=== PATIENT | female | born 1930 | race Caucasian/White ===

== ENCOUNTER 2017-03-05 21:17 | Inpatient (IN) ==
[2017-03-05] MEDS ORDERED: 0.9 % SODIUM CHLORIDE 1,000 ML IV ONE (21:20)
--- NOTE | 2017-03-05 21:28 | Emergency Department Note ---
SOB HPI - General Chief Complaint: Shortness of Breath/Dyspnea Stated Complaint: Weakness, SOB Time Seen by Provider: 03/05/17 21:23 Source: patient Mode of arrival: EMS Limitations: no limitations - History of Present Illness This patient was diagnosed with pneumonia on Monday at Dr. Woody's office and placed on Levaquin. She does have a history of COPD and heart failure and tonight felt pretty short of breath. She has been getting duo nebs every 4-6 hours. After the treatment at home she did improve but came on into the emergency room anyway. Denies chest pain fever chills nausea vomiting and has been taking fluids well at home. MD Complaint: shortness of breath, cough Onset (ago): day(s) Context: recent illness Severity: moderate Consistency/Duration: intermittent Improves with: bronchodilators Worsens with: coughing Known history of: COPD, congestive heart failure Associated symptoms: Reports: denies other symptoms - Related Data Home Medications Medication Instructions Recorded Confirmed Aspirin [Adult Low Dose Aspirin EC] 81 mg PO DAILY 07/17/16 03/05/17 Cilostazol [Pletal] 100 mg PO BID 07/17/16 03/05/17 Cyanocobalamin [Vitamin B12] 1,000 mcg PO DAILY 07/17/16 07/17/16 Folic Acid 0.4 mg PO DAILY 07/17/16 03/05/17 Furosemide [Lasix] 40 mg PO BID 07/17/16 03/05/17 Hydrochlorothiazide [Oretic] 25 mg PO DAILY 07/17/16 07/17/16 Levothyroxine [Synthroid] 88 mcg PO QAMAC 07/17/16 07/17/16 Losartan Potassium [Cozaar] 25 mg PO DAILY 07/17/16 03/05/17 Lovastatin [Mevacor] 40 mg PO HS 07/17/16 03/05/17 Potassium Chloride [Kdur] 20 meq PO QAC 07/17/16 07/17/16 Pramipexole [Mirapex] 0.25 mg PO DAILY 07/17/16 03/05/17 Vitamin D3 400 unit PO DAILY 07/17/16 07/17/16 budesonide 1 mg/2 mL suspension 1 mg INHALATION BID ml 03/02/17 03/02/17 for nebulization carvedilol 3.125 mg tablet 3.125 mg PO QDAY tab 03/02/17 03/05/17 dextromethorphan HBr PO Q12H PRN 03/02/17 03/02/17 hydrocodone-homatropine 5 mg-1.5 5 ml PO QHS PRN ml 03/02/17 03/02/17 mg/5 mL syrup ipratropium bromide 0.06 % nasal 2 spray INTRANASAL .BID-TID ml 03/02/17 spray ipratropium-albuterol 0.5 mg-3 3 ml INHALATION BID ml 03/02/17 03/02/17 mg(2.5 mg base)/3 mL nebulization soln lactulose 20 gram/30 mL oral 10 g PO QDAY ml 03/02/17 03/02/17 solution magnesium hydroxide PO 03/02/17 03/02/17 sennosides 8.6 mg tablet 8.6 mg PO ONCE 03/02/17 03/02/17 albuterol 90 mcg/actuation aerosol 90 mcg INHALATION ONCE 03/03/17 03/03/17 inhaler nitroglycerin 0.4 mg sublingual 0.4 mg SUBLINGUAL Q5-15M PRN 03/03/17 03/03/17 tablet omeprazole 40 mg capsule,delayed 40 mg PO BID 03/03/17 03/05/17 release sodium chloride 5 % eye drops 1 drp OPHTHALMIC ONCE ml 03/03/17 03/03/17 Levofloxacin [Levaquin] 500 mg PO DAILY 03/05/17 03/05/17 Allergies Allergy/AdvReac Type Severity Reaction Status Date / Time No Known Drug Allergies Allergy Verified 12/11/16 22:54 Review of Systems Constitutional: Denies: fever Eyes: Denies: eye pain ENT ED: Denies: ear pain Cardiovascular: Denies: chest pain Respiratory: Reports: cough, dyspnea, wheezes Gastrointestinal: Denies: abdominal pain, nausea Genitourinary: Denies: urgency Musculoskeletal: Denies: back pain Integumentary: Denies: rash Past Medical History - Past Medical History [facility] Narrative: Medical History (Last Updated 03/03/17 @ 08:47 by Minal Gracia) Hypokalemia (Chronic) Shortness of breath on exertion (Chronic) Right shoulder pain (Chronic) Restless (Chronic) Rectal mass (Chronic) Mitral regurgitation (Chronic) 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) Hypothyroidism (Chronic) GERD without esophagitis (Chronic) Edema (Chronic) Elevated d-dimer (Chronic) Cough (Chronic) COPD (chronic obstructive pulmonary disease) (Chronic) Cardiac failure (Chronic) Benign essential hypertension (Chronic) Acute congestive heart failure (Chronic) Acute bronchitis (Chronic) Abdominal pain (Chronic) Chest pain (Chronic) Congestive heart failure (Chronic) Past Surgical History (Last Updated 03/03/17 @ 08:48 by Minal Gracia) History of surgery (Chronic) Family History Other No pertinent family history Medical history: Reports: CHF, coronary artery disease, hyperlipidemia, hypertension, valvular heart disease Surgical history ED: Reports: coronary bypass (CABG), pacemaker/AICD Physical Exam - General Limitations: no limitations General appearance: alert - Head Head exam: atraumatic, normocephalic - Eye Eye exam: Present: normal appearance - ENT ENT exam: normal exam - Neck Neck exam: Present: normal inspection - Chest Chest inspection: Present: normal inspection - Respiratory Respiratory exam: Present: wheezes - Cardiovascular Cardiovascular exam: Present: regular rate, normal rhythm, normal heart sounds - Abdominal Exam Abdominal exam: Present: soft. Absent: distention, tenderness - Neurological Exam Neurological exam: Present: alert - Psychiatric Psychiatric exam: Present: normal affect, normal mood - Skin Skin exam: Present: warm, dry, intact Course Vital Signs Temperature 96.9 F L 03/05/17 21:18 Pulse Rate 95 H 03/05/17 21:18 Respiratory Rate 20 03/05/17 21:18 Blood Pressure 98/56 03/05/17 21:18 Pulse Oximetry (%) 93 03/05/17 21:18 Temperature 97.2 F 03/06/17 04:14 Pulse Rate 90 03/06/17 04:14 Respiratory Rate 20 03/06/17 04:14 Blood Pressure 102/60 03/06/17 04:14 Pulse Oximetry (%) 93 03/06/17 04:14 Shortness of Breath/Dyspnea - [facility] Narrative Medical decision making narrative: This patient requires several DuoNeb treatments and was too weak to walk and family hope that she would be admitted. I did discuss case with Dr. Treviño and the patient will be admitted to the hospital. - Lab Data Lab results reviewed: Yes I reviewed the patient's lab results. Result diagrams: 03/06/17 04:55 03/06/17 04:55 Lab Results 03/05/17 03/05/17 03/05/17 Range/Units 21:36 21:36 21:36 WBC 4.8 (4.5-11.0) K/mcL RBC 3.02 L (4.00-5.20) M/mcL Hgb 9.5 L (12.0-15.0) g/dL Hct 28.5 L (36.0-48.0) % MCV 94.5 (80.0-100.0) fL MCH 31.5 (26.0-34.0) pg MCHC 33.3 (31.0-36.0) g/dL RDW 15.6 H (11.5-14.5) % Plt Count 161 (140-440) K/mcL MPV 8.6 (7.4-10.4) fL Gran % 60.2 (38.0-78.0) % Lymph % (Auto) 28.4 (15.5-49.0) % [place] % (Auto) 10.2 (1.0-12.0) % Eos % (Auto) 0.8 (0.0-7.0) % Baso % (Auto) 0.4 (0.0-2.0) % Gran # 2.9 (1.8-8.0) K/mcL Lymph # 1.4 L (1.5-4.8) K/mcL [place] # 0.5 (0.1-0.9) K/mcL Eos # 0 (0.0-0.7) K/mcL Baso # 0 (0.0-0.3) K/mcL VBG Lactic Acid 1.3 (0.5-2.2) mmol/L Sodium 136 (133-145) mmol/L Potassium 3.8 (3.3-5.1) mmol/L Chloride 98 (96-108) mmol/L Carbon Dioxide 20 L (22-30) mmol/L Anion Gap 18.0 H (8-16) BUN 53 H (8-23) mg/dl Creatinine 1.5 H (0.6-1.1) mg/dl GFR Calculation 31 Glucose 115 H (70-105) mg/dL Calcium 9.5 (8.6-10.4) mg/dl Total Bilirubin 0.7 (0.0-1.0) mg/dL AST 99 H (0-37) U/l ALT 79 H (0-40) U/l Alkaline Phosphatase 129 H (39-117) U/L Troponin T (0-0.03) ng/ml NT-Pro-B Natriuret Pep 4518.0 H (0-450) pg/ml Total Protein 6.4 (5.9-8.4) gm/dL Albumin 3.5 (3.2-5.2) gm/dL Globulin 2.9 (2.2-3.7) gm/dL Albumin/Globulin Ratio 1.2 (1.0-2.3) Urine Color Urine Appearance Urine pH (5.0-9.0) Ur Specific [place] (1.000-1.035) Urine Protein (NEG) mg/dL Urine Glucose (UA) (NEG) mg/dL Urine Ketones (NEG) mg/dL Urine Occult Blood (<0.03) mg/dL Urine Nitrate (NEG) Urine Bilirubin (NEG) mg/dL Urine Urobilinogen (NEG) mg/dL Ur Leukocyte Esterase (NEG) /uL Urine RBC (0-1) /hpf Urine WBC (0-4) /hpf Ur Squamous Epith Cells (0-4) /hpf Ur Transition Epith Cell (0-2) /hpf Urine Bacteria (0) /hpf Hyaline Casts (0-2) /lpf Other Casts (0) /lpf Urine Mucus (0) /hpf Ur Culture Indicated? 03/05/17 03/05/17 Range/Units 21:37 22:05 WBC (4.5-11.0) K/mcL RBC (4.00-5.20) M/mcL Hgb (12.0-15.0) g/dL Hct (36.0-48.0) % MCV (80.0-100.0) fL MCH (26.0-34.0) pg MCHC (31.0-36.0) g/dL RDW (11.5-14.5) % Plt Count (140-440) K/mcL MPV (7.4-10.4) fL Gran % (38.0-78.0) % Lymph % (Auto) (15.5-49.0) % [place] % (Auto) (1.0-12.0) % Eos % (Auto) (0.0-7.0) % Baso % (Auto) (0.0-2.0) % Gran # (1.8-8.0) K/mcL Lymph # (1.5-4.8) K/mcL [place] # (0.1-0.9) K/mcL Eos # (0.0-0.7) K/mcL Baso # (0.0-0.3) K/mcL VBG Lactic Acid (0.5-2.2) mmol/L Sodium (133-145) mmol/L Potassium (3.3-5.1) mmol/L Chloride (96-108) mmol/L Carbon Dioxide (22-30) mmol/L Anion Gap (8-16) BUN (8-23) mg/dl Creatinine (0.6-1.1) mg/dl GFR Calculation Glucose (70-105) mg/dL Calcium (8.6-10.4) mg/dl Total Bilirubin (0.0-1.0) mg/dL AST (0-37) U/l ALT (0-40) U/l Alkaline Phosphatase (39-117) U/L Troponin T 0.04 H* (0-0.03) ng/ml NT-Pro-B Natriuret Pep (0-450) pg/ml Total Protein (5.9-8.4) gm/dL Albumin (3.2-5.2) gm/dL Globulin (2.2-3.7) gm/dL Albumin/Globulin Ratio (1.0-2.3) Urine Color Yellow Urine Appearance Cloudy Urine pH 5.0 (5.0-9.0) Ur Specific [place] 1.014 (1.000-1.035) Urine Protein 30 A (NEG) mg/dL Urine Glucose (UA) Negative (NEG) mg/dL Urine Ketones Neg (NEG) mg/dL Urine Occult Blood Neg (<0.03) mg/dL Urine Nitrate Neg (NEG) Urine Bilirubin Neg (NEG) mg/dL Urine Urobilinogen Neg (NEG) mg/dL Ur Leukocyte Esterase 250 A (NEG) /uL Urine RBC 5 H (0-1) /hpf Urine WBC 2 (0-4) /hpf Ur Squamous Epith Cells 30 H (0-4) /hpf Ur Transition Epith Cell < 1 (0-2) /hpf Urine Bacteria Few A (0) /hpf Hyaline Casts 99 H (0-2) /lpf Other Casts Mod A (0) /lpf Urine Mucus Few (0) /hpf Ur Culture Indicated? No - Radiology Data Radiology results reviewed: Yes I reviewed the patient's radiology results. Disposition Clinical Impression: Weakness, Community acquired pneumonia Disposition: Xfer As Outpt/Obs ([facility]) Condition: Fair
[2017-03-05 22:20] LABS: Basophils # (Auto) 0 K/mcL (0.0-0.3); Basophils % (Auto) 0.4 % (0.0-2.0); Eosinophils # (Auto) 0 K/mcL (0.0-0.7); Eosinophils % (Auto) 0.8 % (0.0-7.0); Granulocytes % (Auto) 60.2 % (38.0-78.0); Lymphocytes # (Auto) 1.4 K/mcL (1.5-4.8); Lymphocytes % (Auto) 28.4 % (15.5-49.0); Mean Cell Volume 94.5 fL (80.0-100.0); Mean Corpuscular HGB Conc 33.3 g/dL (31.0-36.0); Mean Corpuscular Hemoglobin 31.5 pg (26.0-34.0); Monocytes # (Auto) 0.5 K/mcL (0.1-0.9); Monocytes % (Auto) 10.2 % (1.0-12.0); Platelet Count 161 K/mcL (140-440); RBC 3.02 M/mcL (4.00-5.20); Red Cell Distribution Width 15.6 % (11.5-14.5)
[2017-03-05] MEDS ORDERED: IPRATROPIUM/ALBUTEROL 3 ML AMPUL.NEB NEB ONE ×2 (22:27→22:32)
[2017-03-05 22:48] LABS: ALT/SGPT 79 U/l (0-40); Albumin 3.5 gm/dL (3.2-5.2); Albumin/Globulin Ratio 1.2 (1.0-2.3); Alkaline Phosphatase 129 U/L (39-117); Blood Urea Nitrogen 53 mg/dl (8-23)
[2017-03-05 22:52] LABS: Appearance,Urine CLOUDY; Bacteria,Urine FEW /hpf (0); Bilirubin,Urine NEG (NEG); Color,Urine YELLOW; Glucose,Urine (UA) NEGATIVE (NEG); Leukocyte Esterase,Urine 250 /uL (NEG); Mucus,Urine FEW /hpf (0); Nitrate,Urine NEG (NEG); Other Casts,Urine MOD /lpf (0); Protein,Urine 30 mg/dL (NEG); Specific Gravity,Urine 1.014 (1.000-1.035); Urine Blood NEG mg/dL (<0.03); Urine Hyaline Cast 99 /lpf (0-2); Urine RBC 5 /hpf (0-1); Urine Squamous Epithelial Cell 30 /hpf (0-4); Urine Transitional Epi Cells < 1 /hpf (0-2); Urine WBC 2 /hpf (0-4); Urobilinogen,Urine NEG (NEG)
[2017-03-06] MEDS ORDERED: SENNOSIDES 1 TABLET PO PRN (01:53)
[2017-03-06] MEDS ORDERED: ACETAMINOPHEN 325 MG TABLET PO PRN (01:53)
[2017-03-06] MEDS ORDERED: HYDROcodone/APAP 5/325MG TABLET PO PRN (01:53)
[2017-03-06] MEDS ORDERED: ONDANSETRON 4 MG/2 ML VIAL IV PRN (01:53)
[2017-03-06] MEDS ORDERED: LEVOFLOXACIN 500 MG/100 ML BAG IV SCH (01:53)
[2017-03-06] MEDS ORDERED: MAGNESIUM HYDROXIDE 30 ML ORAL.SUSP PO PRN (01:53)
[2017-03-06] MEDS ORDERED: NALOXONE HCL 0.4 MG/ML VIAL IV PRN (01:53)
--- NOTE | 2017-03-06 02:27 | Internal Med History&Physical ---
Medical - H&P: [facility] Patient information: Note initiated : 03/06/17 at 2:14 am Service Date, if different from initiated Date: [] Patient: Alyssia Rosenbaum 86 y/o F admitted on 03/06/17 for Weakness, SOB. Chief Complaint: [] History of present illness: Ms. Rosenbaum is a 86 year old female with h/o chf CAd, COPD?? presented to the Er with complaints of shortness of breath for nearly a week. She always has chr shortness of breath, but notes that her breathing got worse over approx 1 week. The patient has had shortness of breath, she has cough with yellow phlem, weakness and malaise. She was seen by her PCP and was diagnosed with PNA and was started on levofloxacin. She has some improvement in her symptoms, but this AM noted that her condition worsend, she was more short of breath and has significant weakness and therefore came to the ER for further evaluation. She denied any chest pain or chest tightness, no nausea or vomiting, no constipation of diarrhea. In the ER patients labs showed elevated bnp, mildly elevated trop at 0.04, she had wheezing on exam, cxr suggestive of pna, worsening renal function. Patient given he weakness and pna, / patricia wheezing was admitted to the hospital for further management. she has h/o CAD, CHF, s/p CABG, s/p Cardiac stents as well as two valve replacements as per the patient. She follows with Dr Gonzalez and Dr Muñoz. As per the ER physician the patient and family refused to go to [facility] for cardiac reasons and was therefore admitted her for further management. 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) Hypothyroidism (Chronic) GERD without esophagitis (Chronic) Edema (Chronic) Elevated d-dimer (Chronic) Cough (Chronic) COPD (chronic obstructive pulmonary disease) (Chronic) Cardiac failure (Chronic) Benign essential hypertension (Chronic) Acute congestive heart failure (Chronic) Acute bronchitis (Chronic) Abdominal pain (Chronic) Chest pain (Chronic) Congestive heart failure (Chronic) Surgical history: Past Surgical History (Last Updated 03/03/17 @ 08:48 by Minal Gracia) History of surgery (Chronic) h/o cardiac valve repalcements 2 valves h/o cabg h/o cardiac stents Family history: reviewed and not pertinent Pertinent family history: mom for heart attach DAd from bowel cancer. Medical - H&P: Meds Home Medications Medication Instructions Recorded Confirmed Type Aspirin [Adult Low Dose Aspirin EC] 81 mg PO DAILY 07/17/16 03/05/17 History Cilostazol [Pletal] 100 mg PO BID 07/17/16 03/05/17 History Cyanocobalamin [Vitamin B12] 1,000 mcg PO DAILY 07/17/16 07/17/16 History Folic Acid 0.4 mg PO DAILY 07/17/16 03/05/17 History Furosemide [Lasix] 40 mg PO BID 07/17/16 03/05/17 History Hydrochlorothiazide [Oretic] 25 mg PO DAILY 07/17/16 07/17/16 History Levothyroxine [Synthroid] 88 mcg PO QAMAC 07/17/16 07/17/16 History Losartan Potassium [Cozaar] 25 mg PO DAILY 07/17/16 03/05/17 History Lovastatin [Mevacor] 40 mg PO HS 07/17/16 03/05/17 History Potassium Chloride [Kdur] 20 meq PO QAC 07/17/16 07/17/16 History Pramipexole [Mirapex] 0.25 mg PO DAILY 07/17/16 03/05/17 History Vitamin D3 400 unit PO DAILY 07/17/16 07/17/16 History budesonide 1 mg/2 mL suspension 1 mg INHALATION BID ml 03/02/17 03/02/17 History for nebulization carvedilol 3.125 mg tablet 3.125 mg PO QDAY tab 03/02/17 03/05/17 History dextromethorphan HBr PO Q12H PRN 03/02/17 03/02/17 History hydrocodone-homatropine 5 mg-1.5 5 ml PO QHS PRN ml 03/02/17 03/02/17 History mg/5 mL syrup ipratropium bromide 0.06 % nasal 2 spray INTRANASAL .BID-TID ml 03/02/17 History spray ipratropium-albuterol 0.5 mg-3 3 ml INHALATION BID ml 03/02/17 03/02/17 History mg(2.5 mg base)/3 mL nebulization soln lactulose 20 gram/30 mL oral 10 g PO QDAY ml 03/02/17 03/02/17 History solution magnesium hydroxide PO 03/02/17 03/02/17 History sennosides 8.6 mg tablet 8.6 mg PO ONCE 03/02/17 03/02/17 History albuterol 90 mcg/actuation aerosol 90 mcg INHALATION ONCE 03/03/17 03/03/17 History inhaler nitroglycerin 0.4 mg sublingual 0.4 mg SUBLINGUAL Q5-15M PRN 03/03/17 03/03/17 History tablet omeprazole 40 mg capsule,delayed 40 mg PO BID 03/03/17 03/05/17 History release sodium chloride 5 % eye drops 1 drp OPHTHALMIC ONCE ml 03/03/17 03/03/17 History Levofloxacin [Levaquin] 500 mg PO DAILY 03/05/17 03/05/17 History Allergies Allergy/AdvReac Type Severity Reaction Status Date / Time No Known Drug Allergies Allergy Verified 12/11/16 22:54 Medical - H&P: Exam - Constitutional Vitals: Temp Pulse Resp BP Pulse Ox 96.9 F L 89 20 116/67 94 03/06/17 01:39 03/06/17 01:39 03/06/17 01:39 03/06/17 01:39 03/06/17 01:39 Exam: GENERAL: The patient is a well-developed, well-nourished in no apparent distress. Is alert and oriented x3. VITAL SIGNS: Reviewed and as noted elsewhere. HEENT: Head is normocephalic and atraumatic. Extraocular muscles are intact. Pupils are equal, round, and reactive to light. Nares appeared normal. Mouth appears any without lesions. Mucous membranes are moist. NECK: Normal to inspection, Supple, No lymphadenopathy or thyromegaly. LUNGS: Air entry equal on both sides, no wheezing, crackles noted. No accessory muscles of respiration, prlonged exp phase, patricia rhonchi pratik in lower lobes HEART: Regular rate and rhythm normal, S1 and S2 heard, no Gallop, S3 or Rub Noted, No Gross murmur heard. ABDOMEN: Soft, nontender, and nondistended. Positive bowel sounds. No hepatosplenomegaly was noted. EXTREMITIES: No cyanosis, clubbing, rash, lesions or edema. NEUROLOGIC: Cranial nerves II through XII are grossly intact. Motor and Sensory System Grossly Intact PSYCHIATRIC: Normal affect, Normal Mood. Appropriate Behavior. SKIN: No ulceration or wounds noted, No jaundice, No rash noted. Medical - H&P: Reslt - Labs CBC & Chem 7: 03/05/17 21:36 03/05/17 21:36 Medical - H&P: A/P - Narrative A/P Narrative: a/p PNA: on levofloxacin conitnue same for now, get blood cultures. Check procalcitonin, COPD exacerbation: No need for increased oxygen,likely from pna, treat with duonebs, IV steroids, pt denies h/o copd, but this is listed in past history CHF: BNP elevated, clinically however she does not have much fluid overload, monitor for now. Elevated Troponin: get EKG, pt refused intervention, given copd exacerbation and lack of chest pain, likely this is demand ischemia, type 2 MT. Continue ASA , get echo. Abnl LFT : no GI symptoms, monitor for now. JOHN PAUL: Creat is 1.5, baseline around 1.0, given h/o CHF, and pt not in sepsis, monitor for now, consider gentle hydration if creat still abnl in AM. DVT hep sq Diet CArdiac DNR
[2017-03-06] MEDS ORDERED: methylPREDNISolone SOD SUCC 125 MG/2 ML VIAL ONE (02:38)
[2017-03-06] MEDS: IPRATROPIUM/ALBUTEROL 3 ML AMPUL.NEB NEB SCH ×6 (02:46→22:52)
[2017-03-06] MEDS: methylPREDNISolone SOD SUCC 125 MG/2 ML VIAL IV SCH ×4 (02:47→22:01)
[2017-03-06] MEDS ORDERED: methylPREDNISolone SOD SUCC 125 MG/2 ML VIAL IV SCH (06:00)
[2017-03-06 06:09] LABS: Basophils # (Auto) 0 K/mcL (0.0-0.3); Basophils % (Auto) 0.4 % (0.0-2.0); Eosinophils # (Auto) 0 K/mcL (0.0-0.7); Eosinophils % (Auto) 0.5 % (0.0-7.0); Mean Cell Volume 96.5 fL (80.0-100.0); Mean Corpuscular HGB Conc 33.8 g/dL (31.0-36.0); Mean Corpuscular Hemoglobin 32.6 pg (26.0-34.0); Monocytes # (Auto) 0.1 K/mcL (0.1-0.9); Monocytes % (Auto) 1.1 % (1.0-12.0); Platelet Count 157 K/mcL (140-440); RBC 2.92 M/mcL (4.00-5.20); Red Cell Distribution Width 16.7 % (11.5-14.5)
[2017-03-06 07:04] LABS: ALT/SGPT 71 U/l (0-40); Albumin 3.6 gm/dL (3.2-5.2); Albumin/Globulin Ratio 1.3 (1.0-2.3); Alkaline Phosphatase 124 U/L (39-117); Bilirubin,Direct < 0.2 mg/dL (0.0-0.3); Blood Urea Nitrogen 49 mg/dl (8-23); Gamma Glutamyl Transpeptidase 42 U/L (5-36); Magnesium 2.4 mg/dL (1.6-2.5); Uric Acid 12.4 mg/dL (2.5-8.0)
[2017-03-06] MEDS: PANTOPRAZOLE 40 MG TABLET PO SCH ×2 (08:17→17:18)
--- NOTE | 2017-03-06 09:20 | XRay Report ---
CLINICAL INFORMATION: Shortness of breath COMPARISON: 12/11/2016 FINDINGS: Moderate cardiomegaly is unchanged. Mitral valve prostheses and dual-chamber pacer leads are all in stable satisfactory position without evidence of disruption. A tortuous thoracic aorta again noted. Pulmonary vessels are now moderately distended and there is mild interstitial edema throughout both lungs. Small bilateral pleural effusions appreciated. Underlying COPD changes noted. No infiltrates IMPRESSION: Moderate CHF Interpreted and Authenticated by: Tony Pinto 03/06/17
[2017-03-06] MEDS: ASPIRIN 81 MG TAB.CHEW PO SCH (09:35)
[2017-03-06] MEDS: CARVEDILOL 3.125 MG TABLET PO SCH (09:36)
[2017-03-06] MEDS: PRAMIPEXOLE 0.25 MG TABLET PO SCH (09:36)
[2017-03-06] MEDS: FOLIC ACID 1 MG TABLET PO SCH (09:36)
[2017-03-06] MEDS: HEPARIN 5,000 UNIT/ML VIAL SQ SCH ×2 (09:38→22:00)
[2017-03-06] MEDS: CILOSTAZOL 100 MG TABLET PO SCH ×2 (09:38→22:01)
[2017-03-06] MEDS: LEVOFLOXACIN 250 MG/50 ML BAG IV SCH (09:47)
[2017-03-06] MEDS: FUROSEMIDE 40 MG/4 ML VIAL IV SCH (11:21)
[2017-03-06 13:25] LABS: Appearance,Urine CLEAR; Bilirubin,Urine NEG (NEG); Color,Urine YELLOW; Glucose,Urine (UA) NEGATIVE (NEG); Leukocyte Esterase,Urine NEG /uL (NEG); Nitrate,Urine NEG (NEG); Protein,Urine NEG (NEG); Specific Gravity,Urine 1.018 (1.000-1.035); Urine Blood NEG mg/dL (<0.03); Urobilinogen,Urine NEG (NEG)
--- NOTE | 2017-03-06 13:25 | Echocardiogram Report ---
ECHOCARDIOGRAM: 2-D and M-mode echocardiography with cardiac Doppler and color flow imaging were performed with a [employer] Aplio MX. Indication is heart failure. Overall size of the RA, RV, and aortic root appeared normal. The LA appeared moderately enlarged and the LV appeared mildly enlarged. LV wall thickness appeared moderately increased. Septal motion appeared dyssynergic as can be seen with artificial RV pacing. LV systolic performance otherwise appeared normal. Estimated ejection fraction is 65%. The aortic root appeared sclerotic. A known TAVR appeared well positioned. Maximal instantaneous prosthetic aortic outflow systolic velocity was normal at 1.5 m/sec. No more than very trivial prosthetic aortic regurgitation was noted. The mitral leaflets were obscured by heavy calcification involving the annulus and aortic-mitral intervalvular fibrosa. Mean diastolic LV inflow gradient was 8 mmHg. Valve area as calculated by the continuity equation was 0.75 cm2, possibly an overestimation of severity. Mitral regurgitation, probably moderately [id number] (3-4+), was also noted. Color flow imaging disclosed the regurgitant jet to cling to the atrial aspect of both leaflets. The pulmonic valve showed " wave diminution. Pulmonary artery acceleration time appeared shortened. There was no evidence for pulmonic stenosis. Pulmonic regurgitation, probably mild (1+), and tricuspid regurgitation, probably moderate (2+), were demonstrated. No intracardiac shunting was appreciated. There was no evidence for pericardial effusion. Pacemaker leads were seen within the right heart chambers. The IVC was dilated and did not vary with the respiratory cycle indicating raised CVP. Calculated estimate of PA systolic pressure is moderately elevated at 50 mmHg. Probable sinus with artificial atrial synchronous ventricular pacing, rate 95, was present. CONCLUSION: Aortic root sclerosis. TAVR, normal by echo-Doppler techniques. Mild LV enlargement with moderate concentric hypertrophy, septal dyssynergy as can be seen with artificial RV pacing, and overall normal LV systolic performance. Heavy calcification, mitral annulus and aortic-mitral intervalvular fibrosa yielding mixed mitral stenosis and mitral regurgitation, the former probably [id number], the latter probably moderately [id number] (3-4+)/moderate LA enlargement. Moderate pulmonary hypertension/raised CVP. (See accompanying M-mode and Doppler reports for quantitation.) ECHOCARDIOGRAPHY M-MODE CALCULATIONS: HT: 65'' WT: 140 BSA: 1.70 m2 NORMALS AORTA: AORTIC ROOT 2.8 2.0-3.7 cm LEFT ATRIUM 4.3 1.9-4.0 cm MITRAL VALVE: EXCURSION 1.7 1.9-2.7 cm EPSS 0.8 <0.5 cm LT VENTRICLE: LVID (ED) 5.0 3.5-5.7 cm LVID (ES) 3.0 SEPTAL THICKNESS 1.3 0.6-1.1 cm SEPTAL EXCURSION 0.7 0.3-0.8 cm LVPW THICKNESS 1.3 0.6-1.1 cm LVPW EXCURSION 1.2 0.9-1.4 cm MINOR AXIS FS 40 25%-40% RT VENTRICLE: RVID (ED) 1.0 0.9-2.6 cm(up to 3cm if LLD) QUALITATIVE DOPPLER FLOW STUDIES MITRAL VALVE MR, probably moderately [id number] (3-4+). AORTIC VALVE TAVR, minimally regurgitant. TRICUSPID VALVE TR, probably moderate (2+). PULMONIC VALVE NV, probably mild (1+). QUANTITATIVE DOPPLER FLOW STUDIES SAMPLE SITES VELOCITIES PEAK PRESSURE VALVE AREA and/or VALVE WINDOW (PEAK,M/SEC) DROP (GRADIENT) PRESSURE HALF-TIME MV (Diastole) 2.5 (E) - (A) 8 mmHg 0.75 cm2 MV (Systole) 5.4 AO (Diastole) 2.0 AO (Systole) 1.5 TV (Systole) 2.7 PV (Systole) 0.8 PV (Diastole) 2.2 LWG:nikole Job ID: [id number] Doc ID: [id number] Los Gonzalez MD
[2017-03-06] MEDS: SIMVASTATIN 20 MG TABLET PO SCH (22:00)
[2017-03-06] MEDS: BETHANECHOL 10 MG TABLET PO SCH (22:01)
[2017-03-07] MEDS: IPRATROPIUM/ALBUTEROL 3 ML AMPUL.NEB NEB SCH ×6 (02:02→23:07)
[2017-03-07] MEDS: methylPREDNISolone SOD SUCC 125 MG/2 ML VIAL IV SCH ×3 (05:23→22:47)
[2017-03-07 06:23] LABS: Basophils # (Auto) 0 K/mcL (0.0-0.3); Basophils % (Auto) 0.2 % (0.0-2.0); Eosinophils # (Auto) 0 K/mcL (0.0-0.7); Eosinophils % (Auto) 0 % (0.0-7.0); Granulocytes % (Auto) 74.3 % (38.0-78.0); Lymphocytes % (Auto) 24.3 % (15.5-49.0); Mean Cell Volume 96.7 fL (80.0-100.0); Mean Corpuscular HGB Conc 33.8 g/dL (31.0-36.0); Mean Corpuscular Hemoglobin 32.7 pg (26.0-34.0); Monocytes # (Auto) 0 K/mcL (0.1-0.9); Monocytes % (Auto) 1.2 % (1.0-12.0); Platelet Count 168 K/mcL (140-440); RBC 3.19 M/mcL (4.00-5.20); Red Cell Distribution Width 16.7 % (11.5-14.5)
[2017-03-07 06:53] LABS: ALT/SGPT 66 U/l (0-40); Albumin 3.6 gm/dL (3.2-5.2); Albumin/Globulin Ratio 1.2 (1.0-2.3); Alkaline Phosphatase 127 U/L (39-117); Bilirubin,Direct < 0.2 mg/dL (0.0-0.3); Blood Urea Nitrogen 53 mg/dl (8-23); Gamma Glutamyl Transpeptidase 45 U/L (5-36); Magnesium 2.7 mg/dL (1.6-2.5); Uric Acid 13.2 mg/dL (2.5-8.0)
[2017-03-07] MEDS: PANTOPRAZOLE 40 MG TABLET PO SCH ×2 (07:14→20:24)
[2017-03-07] MEDS: BETHANECHOL 10 MG TABLET PO SCH (07:58)
[2017-03-07] MEDS: CILOSTAZOL 100 MG TABLET PO SCH ×2 (07:58→20:18)
[2017-03-07] MEDS: FOLIC ACID 1 MG TABLET PO SCH (08:05)
[2017-03-07] MEDS: FUROSEMIDE 40 MG/4 ML VIAL IV SCH (08:05)
[2017-03-07] MEDS: CARVEDILOL 3.125 MG TABLET PO SCH (08:05)
[2017-03-07] MEDS: HEPARIN 5,000 UNIT/ML VIAL SQ SCH ×2 (08:05→20:24)
[2017-03-07] MEDS: ASPIRIN 81 MG TAB.CHEW PO SCH (08:05)
[2017-03-07] MEDS: PRAMIPEXOLE 0.25 MG TABLET PO SCH (08:11)
[2017-03-07] MEDS: LEVOFLOXACIN 250 MG/50 ML BAG IV SCH (09:09)
--- NOTE | 2017-03-07 13:01 | Internal Med Progress Note ---
Medical - PN: Subj Patient information: Note initiated : 03/07/17 at 12:59 pm Service Date, if different from initiated Date: [] Patient: Alyssia Rosenbaum 86 y/o F admitted on 03/06/17 for Weakness, SOB/ Pneumonia. Chief Complaint: [] Interval history: Ms. Rosenbaum is a 86 year old female with h/o chf CAd, COPD?? presented to the Er with complaints of shortness of breath for nearly a week. She always has chr shortness of breath, but notes that her breathing got worse over approx 1 week. The patient has had shortness of breath, she has cough with yellow phlem, weakness and malaise. She was seen by her PCP and was diagnosed with PNA and was started on levofloxacin. She has some improvement in her symptoms, but this AM noted that her condition worsend, she was more short of breath and has significant weakness and therefore came to the ER for further evaluation. She denied any chest pain or chest tightness, no nausea or vomiting, no constipation of diarrhea. In the ER patients labs showed elevated bnp, mildly elevated trop at 0.04, she had wheezing on exam, cxr suggestive of pna, worsening renal function. Patient given he weakness and pna, / patricia wheezing was admitted to the hospital for further management. she has h/o CAD, CHF, s/p CABG, s/p Cardiac stents as well as two valve replacements as per the patient. She follows with Dr Gonzalez and Dr Muñoz. As per the ER physician the patient and family refused to go to [facility] for cardiac reasons and was therefore admitted her for further management. March 07: Pt seen examined, patient tolerating po well, she had a rought night, with relationship to shortness and coughing. The patients sy mptoms improved with use of duonebs. This am she feels weak and short of breath. She still has urinary retention for which she requires catheterization. UA is negative. Patient will have sims placed. She remains of diuretic for CHF. Exam today did show wheezing and bethenacol which was start ed for urinary retention is stopped (can worsen copd) Pertinent ROS: Denies headache, dizziness Denies chest pain, palpitations Present cough and shortness of breath Denies abdominal pain, nausea or vomiting. - Constitutional Vitals: Vital Signs Temp Pulse Resp BP Pulse Ox 97.6 F 90 24 H 120/68 94 03/07/17 08:00 03/07/17 08:00 03/07/17 08:00 03/07/17 08:00 03/07/17 08:00 Period Temp Pulse Resp BP Sys/Harmon Pulse Ox Last 24 Hr 97.3 F-97.9 F 90-103 16-26 108-136/62-75 91-95 Intake and Output 03/06/17 03/07/17 03/07/17 21:59 05:59 13:59 Intake Total 740 / 740 270 / 270 200 / 200 Output Total 720 / 720 300 / 300 Balance 20 / 20 -30 / -30 200 / 200 Weight 146 lb 8 oz Intake & Output: Intake & Output 03/06/17 03/07/17 03/07/17 21:59 05:59 13:59 Intake Total 740 / 740 270 / 270 200 / 200 Output Total 720 / 720 300 / 300 Balance 20 / 20 -30 / -30 200 / 200 Weight 146 lb 8 oz Intake: Oral 740 / 740 270 / 270 200 / 200 Output: Void Amount 720 / 720 300 / 300 Straight 720 / 720 Other: Meal Dinner Breakfast Percent of Meal Consumed 25% 50% # Voids 1 # Bowel Movements 1 Exam: Constitutional; Afebrile, cooperative, alert, not in distress. Eyes- No icterus, , No periorbital swelling Ears- Ext ear normal, hearing normal to conversation. Neck- Midline trachea, supple Respiratory system: Air Entry equal on both sides,patricia rhonchi, noted, speaking full sentences, no accessory resp muscle use. CVS- Rate rhythm regular, S1,S2 heard, no gallop, no rub. 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 Medical - PN: Obj Da - Labs CBC & Chem 7: 03/07/17 03:49 03/07/17 03:49 Labs: Abnormal Lab Results 03/07/17 03/07/17 03/06/17 03:49 03:49 18:32 WBC 4.2 L RBC 3.19 L Hgb 10.4 L Hct 30.9 L RDW 16.7 H Lymph # 1.0 L Hyde # 0 L Carbon Dioxide 20 L Anion Gap 19.0 H BUN 53 H Creatinine 1.5 H Glucose 188 H Uric Acid 13.2 H Magnesium 2.7 H GGT 45 H AST 54 H ALT 66 H Alkaline Phosphatase 127 H Troponin T 0.04 H* Meds: Medications Acetaminophen (Tylenol) 650 mg PO Q6HP PRN PRN Reason: PAIN/FEVER > 101 Acetaminophen/Hydrocodone Bitart ([place] 5/325mg) 1 tab PO Q4HP PRN PRN Reason: Pain Albuterol/Ipratropium (Duoneb) 3 ml NEB Q4HRT [facility] Last Admin: 03/07/17 06:49 Dose: 3 ml Aspirin (Aspirin) 81 mg PO DAILY [facility] Last Admin: 03/07/17 08:05 Dose: 81 mg Carvedilol (Coreg) 3.125 mg PO QDAY [facility] Last Admin: 03/07/17 08:05 Dose: 3.125 mg Cilostazol (Pletal) 100 mg PO BIDAC [facility] Folic Acid (Folic Acid) 1 mg PO DAILY [facility] Last Admin: 03/07/17 08:05 Dose: 1 mg Furosemide (Lasix) 40 mg IV DAILY [facility] Last Admin: 03/07/17 08:05 Dose: 40 mg Heparin Sodium (Porcine) (Heparin) 5,000 unit SQ Q12 [facility] Last Admin: 03/07/17 08:05 Dose: 5,000 unit Levofloxacin (Levaquin) 250 mg in 50 mls @ 50 mls/hr IV DAILY [facility] Last Admin: 03/07/17 09:09 Dose: 50 mls/hr Magnesium Hydroxide (Milk Of Magnesia) 30 ml PO DAILYP PRN PRN Reason: Constipation Last Admin: 03/06/17 17:18 Dose: 30 ml Methylprednisolone Sodium Succinate (Solu-Medrol) 62.5 mg IV Q8 [facility] Last Admin: 03/07/17 05:23 Dose: 62.5 mg Naloxone HCl (Narcan) 0.1 mg IV Q2MIN PRN PRN Reason: Opiate Reversal Ondansetron HCl (Zofran) 4 mg IV Q4HP PRN PRN Reason: Nausea And Vomiting Pantoprazole Sodium (Protonix) 40 mg PO BIDAC [facility] Last Admin: 03/07/17 07:14 Dose: 40 mg Pramipexole Dihydrochloride (Mirapex) 0.25 mg PO DAILY [facility] Last Admin: 03/07/17 08:11 Dose: 0.25 mg Senna (Senokot) 2 tab PO HSP PRN PRN Reason: Constipation Simvastatin (Zocor) 20 mg PO HS NO Last Admin: 03/06/17 22:00 Dose: 20 mg Medical - PN: A/P - Time Spent With Patient Total time spent is greater than 50% in coordination of care (as documented) at patient's floor/unit and/or counseling patient: - Narrative A/P Narrative: a/p PNA: on levofloxacin continue same for now, microbiology neg, procalcitonin neg , on levofloxacin contiue same. COPD exacerbation: No need for increased oxygen,likely from pna,continue duonebs , steroids and abs, monitor . CHF: BNP elevated, clinically however she does not have much fluid overload, On IV lasix, Echo reveiwed, dialted IVC, moderate to sever aortic and mitral stenosis. h/o patricia valve replacement, levef is otherwise ok, Elevated Troponin: type 2 [place], trop 0.04 yesterday. no chest pain, conservative management. Abnl LFT : no GI symptoms, monitor for now. JOHN PAUL: Creat is 1.5, baseline around 1.0, given h/o CHF, on lasix, monitor. DVT hep sq Diet CArdiac DNR Case discussed with daughter, who thinks pt needs to go to rehab to get stronger at the time of discharge. pt/ ot st working with the patient. Medical - PN: Qual - VTE Deep Vein Thrombosis/Pulmonary Embolism Present on Admission: No
[2017-03-07] MEDS: SIMVASTATIN 20 MG TABLET PO SCH (20:24)
[2017-03-08] MEDS: IPRATROPIUM/ALBUTEROL 3 ML AMPUL.NEB NEB SCH ×6 (02:35→23:04)
[2017-03-08 05:17] LABS: Basophils # (Auto) 0 K/mcL (0.0-0.3); Basophils % (Auto) 0.1 % (0.0-2.0); Eosinophils # (Auto) 0 K/mcL (0.0-0.7); Eosinophils % (Auto) 0.4 % (0.0-7.0); Lymphocytes # (Auto) 0.9 K/mcL (1.5-4.8); Lymphocytes % (Auto) 11.1 % (15.5-49.0); Mean Cell Volume 97.4 fL (80.0-100.0); Mean Corpuscular HGB Conc 33.2 g/dL (31.0-36.0); Mean Corpuscular Hemoglobin 32.4 pg (26.0-34.0); Monocytes # (Auto) 0.1 K/mcL (0.1-0.9); Monocytes % (Auto) 1.4 % (1.0-12.0); Platelet Count 174 K/mcL (140-440); RBC 3.13 M/mcL (4.00-5.20); Red Cell Distribution Width 16.1 % (11.5-14.5)
[2017-03-08] MEDS: methylPREDNISolone SOD SUCC 125 MG/2 ML VIAL IV SCH ×3 (05:26→21:22)
[2017-03-08 05:38] LABS: ALT/SGPT 49 U/l (0-40); Albumin 3.4 gm/dL (3.2-5.2); Albumin/Globulin Ratio 1.2 (1.0-2.3); Alkaline Phosphatase 111 U/L (39-117); Bilirubin,Direct < 0.2 mg/dL (0.0-0.3); Blood Urea Nitrogen 60 mg/dl (8-23); Gamma Glutamyl Transpeptidase 41 U/L (5-36); Magnesium 2.6 mg/dL (1.6-2.5); Uric Acid 13.6 mg/dL (2.5-8.0)
[2017-03-08] MEDS: PANTOPRAZOLE 40 MG TABLET PO SCH ×2 (07:41→17:54)
[2017-03-08] MEDS: CILOSTAZOL 100 MG TABLET PO SCH ×2 (07:41→17:54)
[2017-03-08] MEDS: ASPIRIN 81 MG TAB.CHEW PO SCH (08:09)
[2017-03-08] MEDS: FOLIC ACID 1 MG TABLET PO SCH (08:09)
[2017-03-08] MEDS: HEPARIN 5,000 UNIT/ML VIAL SQ SCH ×2 (08:09→21:22)
[2017-03-08] MEDS: CARVEDILOL 3.125 MG TABLET PO SCH (08:09)
[2017-03-08] MEDS: FUROSEMIDE 40 MG/4 ML VIAL IV SCH ×2 (08:09→21:22)
[2017-03-08] MEDS: LEVOFLOXACIN 250 MG/50 ML BAG IV SCH (08:18)
[2017-03-08] MEDS: PRAMIPEXOLE 0.25 MG TABLET PO SCH (08:18)
--- NOTE | 2017-03-08 09:30 | XRay Report ---
CLINICAL INFORMATION: CHF COMPARISON: 03/05/2017 two view chest x-ray FINDINGS: Marked cardiomegaly has increased. Pacemaker leads in stable satisfactory position. Mediastinum is unremarkable. The pulmonary vessels are now mildly distended and there is moderate bronchovascular edema throughout both lungs. Small infiltrate seen in the right base. Small bilateral pleural effusions noted. IMPRESSION: 1. Moderate CHF 2. Small infiltrate - right base Interpreted and Authenticated by: Tony Pinto 03/08/17
--- NOTE | 2017-03-08 12:25 | Internal Med Progress Note ---
Medical - PN: Subj Patient information: Note initiated : 03/08/17 at 12:23 pm Service Date, if different from initiated Date: [] Patient: Alyssia Rosenbaum 86 y/o F admitted on 03/06/17 for Weakness, SOB/ Pneumonia. Chief Complaint: [] Interval history: Ms. Rosenbaum is a 86 year old female with h/o chf CAd, COPD?? presented to the Er with complaints of shortness of breath for nearly a week. She always has chr shortness of breath, but notes that her breathing got worse over approx 1 week. The patient has had shortness of breath, she has cough with yellow phlem, weakness and malaise. She was seen by her PCP and was diagnosed with PNA and was started on levofloxacin. She has some improvement in her symptoms, but this AM noted that her condition worsend, she was more short of breath and has significant weakness and therefore came to the ER for further evaluation. She denied any chest pain or chest tightness, no nausea or vomiting, no constipation of diarrhea. In the ER patients labs showed elevated bnp, mildly elevated trop at 0.04, she had wheezing on exam, cxr suggestive of pna, worsening renal function. Patient given he weakness and pna, / patricia wheezing was admitted to the hospital for further management. she has h/o CAD, CHF, s/p CABG, s/p Cardiac stents as well as two valve replacements as per the patient. She follows with Dr Gonzalez and Dr Muñoz. As per the ER physician the patient and family refused to go to [facility] for cardiac reasons and was therefore admitted her for further management. March 07: Pt seen examined, patient tolerating po well, she had a rought night, with relationship to shortness and coughing. The patients sy mptoms improved with use of duonebs. This am she feels weak and short of breath. She still has urinary retention for which she requires catheterization. UA is negative. Patient will have sims placed. She remains of diuretic for CHF. Exam today did show wheezing and bethenacol which was start ed for urinary retention is stopped (can worsen copd) March 08: Patient seen examined, no acute overnight events, her shortness of breath is better this AM, she is still feeling tired but her breathing and cough is improved since yesterday. She denies any acute complaints and slept well last night. her CXR today shows moderate chf and right basilar pna. The patient is on diuretic and abx (levofloxacin). The patient otherwise is afebrile. wbc normal but did increase since yesterday. Pertinent ROS: Denies headache, dizziness Denies chest pain, palpitations cough and sob improved. Denies abdominal pain, nausea or vomiting. - Constitutional Vitals: Vital Signs Temp Pulse Resp BP Pulse Ox 97.6 F 100 H 18 108/68 94 03/08/17 11:22 03/08/17 11:42 03/08/17 11:42 03/08/17 08:00 03/08/17 11:22 Period Temp Pulse Resp BP Sys/Harmon Pulse Ox Last 24 Hr 96.9 F-98.0 F 93-105 18-24 98-121/60-75 91-96 Intake and Output 03/07/17 03/08/17 03/08/17 21:59 05:59 13:59 Intake Total 230 / 230 50 / 50 440 / 440 Output Total 560 / 560 425 / 425 Balance -330 / -330 -375 / -375 440 / 440 Weight 148 lb 8 oz Intake & Output: Intake & Output 03/07/17 03/08/17 03/08/17 21:59 05:59 13:59 Intake Total 230 / 230 50 / 50 440 / 440 Output Total 560 / 560 425 / 425 Balance -330 / -330 -375 / -375 440 / 440 Weight 148 lb 8 oz Intake: Oral 230 / 230 50 / 50 440 / 440 Output: Urine Catheter Amount 560 / 560 425 / 425 Other: Meal Dinner Breakfast Percent of Meal Consumed 100% 75% # Bowel Movements 1 Exam: Constitutional; Afebrile, cooperative, alert, not in distress. Eyes- No icterus, , No periorbital swelling Ears- Ext ear normal, hearing normal to conversation. Neck- Midline trachea, supple Respiratory system: Air Entry equal on both sides, patricia rhonchi much improved since yesterday. CVS- Rate rhythm irregular, S1,S2 heard, no gallop, no rub. 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 Medical - PN: Obj Da - Labs CBC & Chem 7: 03/08/17 03:33 03/08/17 03:33 Labs: Abnormal Lab Results 03/08/17 03/08/17 03/07/17 03:33 03:33 03:49 WBC RBC 3.13 L Hgb 10.1 L Hct 30.5 L RDW 16.1 H Gran % 87.0 H Lymph % (Auto) 11.1 L Lymph # 0.9 L Stone # Carbon Dioxide 21 L 20 L Anion Gap 18.0 H 19.0 H BUN 60 H 53 H Creatinine 1.5 H 1.5 H Glucose 149 H 188 H Uric Acid 13.6 H 13.2 H Magnesium 2.6 H 2.7 H GGT 41 H 45 H AST 54 H ALT 49 H 66 H Alkaline Phosphatase 127 H Troponin T 03/07/17 03/06/17 03:49 18:32 WBC 4.2 L RBC 3.19 L Hgb 10.4 L Hct 30.9 L RDW 16.7 H Gran % Lymph % (Auto) Lymph # 1.0 L Stone # 0 L Carbon Dioxide Anion Gap BUN Creatinine Glucose Uric Acid Magnesium GGT AST ALT Alkaline Phosphatase Troponin T 0.04 H* Meds: Medications Acetaminophen (Tylenol) 650 mg PO Q6HP PRN PRN Reason: PAIN/FEVER > 101 Acetaminophen/Hydrocodone Bitart ([place] 5/325mg) 1 tab PO Q4HP PRN PRN Reason: Pain Albuterol/Ipratropium (Duoneb) 3 ml NEB Q4HRT [facility] Last Admin: 03/08/17 11:40 Dose: 3 ml Aspirin (Aspirin) 81 mg PO DAILY [facility] Last Admin: 03/08/17 08:09 Dose: 81 mg Carvedilol (Coreg) 3.125 mg PO QDAY [facility] Last Admin: 03/08/17 08:09 Dose: 3.125 mg Cilostazol (Pletal) 100 mg PO BIDAC [facility] Last Admin: 03/08/17 07:41 Dose: 100 mg Folic Acid (Folic Acid) 1 mg PO DAILY [facility] Last Admin: 03/08/17 08:09 Dose: 1 mg Furosemide (Lasix) 40 mg IV Q12 [facility] Heparin Sodium (Porcine) (Heparin) 5,000 unit SQ Q12 [facility] Last Admin: 03/08/17 08:09 Dose: 5,000 unit Levofloxacin (Levaquin) 250 mg in 50 mls @ 50 mls/hr IV DAILY [facility] Last Admin: 03/08/17 08:18 Dose: 50 mls/hr Magnesium Hydroxide (Milk Of Magnesia) 30 ml PO DAILYP PRN PRN Reason: Constipation Last Admin: 03/06/17 17:18 Dose: 30 ml Methylprednisolone Sodium Succinate (Solu-Medrol) 62.5 mg IV Q8 [facility] Last Admin: 03/08/17 05:26 Dose: 62.5 mg Naloxone HCl (Narcan) 0.1 mg IV Q2MIN PRN PRN Reason: Opiate Reversal Ondansetron HCl (Zofran) 4 mg IV Q4HP PRN PRN Reason: Nausea And Vomiting Pantoprazole Sodium (Protonix) 40 mg PO BIDAC [facility] Last Admin: 03/08/17 07:41 Dose: 40 mg Pramipexole Dihydrochloride (Mirapex) 0.25 mg PO DAILY [facility] Last Admin: 03/08/17 08:18 Dose: 0.25 mg Senna (Senokot) 2 tab PO HSP PRN PRN Reason: Constipation Simvastatin (Zocor) 20 mg PO HS [facility] Last Admin: 03/07/17 20:24 Dose: 20 mg Medical - PN: A/P - Time Spent With Patient Total time spent is greater than 50% in coordination of care (as documented) at patient's floor/unit and/or counseling patient: - Narrative A/P Narrative: a/p PNA: on levofloxacin continue same for now, microbiology neg. Repeat CXR Shows right basilar pna, will consider XRray PA lat in AM. COPD exacerbation: No need for increased oxygen,likely from pna,continue duonebs , steroids and abs, monitor . CHF: repeat CXR still shows CHF, Increase dose of lasix to 40mg bid, Monitor i/ o Elevated Troponin: type 2 [place], trop 0.04 yesterday. no chest pain, conservative management. Abnl LFT : no GI symptoms, monitor for now. IMproving. las. JOHN PAUL: Creat is 1.5, baseline around 1.0, given h/o CHF, on lasix, monitor. DVT hep sq Diet Cardiac DNR . Medical - PN: Qual - VTE Deep Vein Thrombosis/Pulmonary Embolism Present on Admission: No
[2017-03-08] MEDS: SIMVASTATIN 20 MG TABLET PO SCH (21:22)
[2017-03-09] MEDS: IPRATROPIUM/ALBUTEROL 3 ML AMPUL.NEB NEB SCH ×2 (02:22→07:10)
[2017-03-09 04:40] LABS: Basophils # (Auto) 0 K/mcL (0.0-0.3); Basophils % (Auto) 0 % (0.0-2.0); Eosinophils # (Auto) 0 K/mcL (0.0-0.7); Eosinophils % (Auto) 0.5 % (0.0-7.0); Granulocytes % (Auto) 88.1 % (38.0-78.0); Lymphocytes # (Auto) 0.7 K/mcL (1.5-4.8); Lymphocytes % (Auto) 9.1 % (15.5-49.0); Mean Cell Volume 96.6 fL (80.0-100.0); Mean Corpuscular HGB Conc 33.8 g/dL (31.0-36.0); Mean Corpuscular Hemoglobin 32.7 pg (26.0-34.0); Monocytes # (Auto) 0.2 K/mcL (0.1-0.9); Monocytes % (Auto) 2.3 % (1.0-12.0); Platelet Count 168 K/mcL (140-440); RBC 3.05 M/mcL (4.00-5.20); Red Cell Distribution Width 16.2 % (11.5-14.5)
[2017-03-09 04:59] LABS: ALT/SGPT 43 U/l (0-40); Albumin 3.3 gm/dL (3.2-5.2); Albumin/Globulin Ratio 1.2 (1.0-2.3); Alkaline Phosphatase 104 U/L (39-117); Bilirubin,Direct < 0.2 mg/dL (0.0-0.3); Blood Urea Nitrogen 64 mg/dl (8-23); Gamma Glutamyl Transpeptidase 44 U/L (5-36); Magnesium 2.4 mg/dL (1.6-2.5); Uric Acid 14.7 mg/dL (2.5-8.0)
[2017-03-09] MEDS: methylPREDNISolone SOD SUCC 125 MG/2 ML VIAL IV SCH (05:40)
[2017-03-09] MEDS: PANTOPRAZOLE 40 MG TABLET PO SCH (07:30)
[2017-03-09] MEDS: CILOSTAZOL 100 MG TABLET PO SCH (07:31)
[2017-03-09] MEDS: PRAMIPEXOLE 0.25 MG TABLET PO SCH (09:46)
[2017-03-09] MEDS: CARVEDILOL 3.125 MG TABLET PO SCH (09:46)
[2017-03-09] MEDS: FOLIC ACID 1 MG TABLET PO SCH (09:46)
[2017-03-09] MEDS: HEPARIN 5,000 UNIT/ML VIAL SQ SCH (09:47)
[2017-03-09] MEDS: ASPIRIN 81 MG TAB.CHEW PO SCH (09:47)
[2017-03-09] MEDS: LEVOFLOXACIN 250 MG/50 ML BAG IV SCH (09:47)
[2017-03-09] MEDS: FUROSEMIDE 40 MG/4 ML VIAL IV SCH (09:47)
--- NOTE | 2017-03-09 10:04 | Discharge Summary ---
Medical - DS: Prov Patient information: Note initiated : 03/09/17 at 9:41 am Patient: Alyssia Rosenbaum 86 y/o F admitted on 03/06/17 for Weakness, SOB/ Pneumonia. Date of admission: 03/06/17 10:28 Discharge date: 03/09/17 Primary care physician: Dennis Woody pphone #[phone] Admitting clinician: Migel Treviño Attending physician on discharge: Belen James Medical - DS: Meds - Discharge Medications Prescriptions: Albuterol Sulfate 2.5 mg IH Q4HP PRN #1 ml PRN Reason: Shortness Of Breath Or Wheezing HYDROcodone/APAP 5/325MG [[place] 5/325Mg] 1 tab PO Q4HP PRN #20 tablet PRN Reason: Pain Ipratropium/Albuterol [Duoneb] 3 ml INHALATION TID #1 ml Lactulose 10 g PO QDAY PRN #1 ml PRN Reason: Constipation Omeprazole [Prilosec] 40 mg PO BIDAC #1 capsule predniSONE [Prednisone] 40 mg PO BID #1 tablet Active and Home Medications: discharge medications: Prednisone 40 mg by mouth twice a day, taper by 10 mg per day. Sublingual nitroglycerin, when necessary atrovent nasal spray 2 sprays twice a day when necessary Hydrocodonehomatropine5 mg/1.5 mgper mL syrup, daily at bedtime when necessary Coreg 3.125 mg by mouth twice a day Budesonide 1 mg per 2 Mls 1 mg per nebulizer twice a day Vitamin D 400 units daily Mirapex 0.25 mg daily Potassium 20 mEq every morning Omeprazole 40 mg twice a day [id number] mg daily at bedtime Levothyroxine 88 g daily Levaquin 500 mg by mouth daily3 more days Lactulose 10 g daily when necessary constipation duo nebs per nebulizer 3 times a day Albuterol nebs every 4 hours when necessary wheezing Heparin 5000 units subcutaneous every 12 hours Norco5/325 one by mouth every 4 hours when necessary Lasix 40 mg by mouth twice a day Folate 400 mg daily B12 1000 g daily Pletal 100 mg by mouth twice a day aspirin 81 mg daily Tylenol 650 mg every 6 hours when necessary Home Medications Aspirin [Adult Low Dose Aspirin EC] 81 mg PO DAILY 07/17/16 [History Confirmed 03/05/17 Last Taken Unknown] Cilostazol [Pletal] 100 mg PO BID 07/17/16 [History Confirmed 03/05/17 Last Taken Unknown] Cyanocobalamin [Vitamin B12] 1,000 mcg PO DAILY 07/17/16 [History Confirmed Last Taken Unknown] Folic Acid 0.4 mg PO DAILY 07/17/16 [History Confirmed 03/05/17 Last Taken Unknown] Furosemide [Lasix] 40 mg PO BID 07/17/16 [History Confirmed 03/05/17 Last Taken Unknown] Hydrochlorothiazide [Oretic] 25 mg PO DAILY 07/17/16 [History Confirmed Last Taken Unknown] Levothyroxine [Synthroid] 88 mcg PO QAMAC 07/17/16 [History Confirmed 07/17/16 Last Taken Unknown] Losartan Potassium [Cozaar] 25 mg PO DAILY 07/17/16 [History Confirmed 03/05/17 Last Taken Unknown] Lovastatin [Mevacor] 40 mg PO HS 07/17/16 [History Confirmed 03/05/17 Last Taken Unknown] Potassium Chloride [Kdur] 20 meq PO QAC 07/17/16 [History Confirmed 07/17/16 Last Taken Unknown] Pramipexole [Mirapex] 0.25 mg PO DAILY 07/17/16 [History Confirmed 03/05/17 Last Taken Unknown] Vitamin D3 400 unit PO DAILY 07/17/16 [History Confirmed 07/17/16 Last Taken Unknown] budesonide 1 mg/2 mL suspension for nebulization 1 mg INHALATION BID ml [History Confirmed 03/02/17 Last Taken Unknown] carvedilol 3.125 mg tablet 3.125 mg PO QDAY tab 03/02/17 [History Confirmed 01/16 Last Taken Unknown] dextromethorphan HBr PO Q12H PRN 03/02/17 [History Confirmed 03/02/17 Last Taken Unknown] hydrocodone-homatropine 5 mg-1.5 mg/5 mL syrup 5 ml PO QHS PRN ml 03/02/17 [ History Confirmed 03/02/17 Last Taken Unknown] ipratropium bromide 0.06 % nasal spray 2 spray INTRANASAL .BID-TID ml 03/02/17 [History Confirmed 03/02/17 Last Taken Unknown] ipratropium-albuterol 0.5 mg-3 mg(2.5 mg base)/3 mL nebulization soln 3 ml INHALATION BID ml 03/02/17 [History Confirmed 03/02/17 Last Taken Unknown] lactulose 20 gram/30 mL oral solution 10 g PO QDAY ml 03/02/17 [History Confirmed 03/02/17 Last Taken Unknown] magnesium hydroxide PO 03/02/17 [History Confirmed 03/02/17 Last Taken Unknown] sennosides 8.6 mg tablet 8.6 mg PO ONCE 03/02/17 [History Confirmed 03/02/17 Last Taken Unknown] albuterol 90 mcg/actuation aerosol inhaler 90 mcg INHALATION ONCE 03/03/17 [ History Confirmed 03/03/17 Last Taken Unknown] nitroglycerin 0.4 mg sublingual tablet 0.4 mg SUBLINGUAL Q5-15M PRN 03/03/17 [ History Confirmed 03/03/17 Last Taken Unknown] omeprazole 40 mg capsule,delayed release 40 mg PO BID 03/03/17 [History Confirmed 03/05/17 Last Taken Unknown] sodium chloride 5 % eye drops 1 drp OPHTHALMIC ONCE ml 03/03/17 [History Confirmed 03/03/17 Last Taken Unknown] Levofloxacin [Levaquin] 500 mg PO DAILY 03/05/17 [History Confirmed 03/05/17 Last Taken Unknown] Medical - DS: Hosp Hospital course: Mrs. Rosenbaum is a 86 year old female March 06, 2017: Interval history: Ms. Rosenbaum is a 86 year old female with h/o chf , CAd, COPD?? presented to the Er with complaints of shortness of breath for nearly a week. She always has chr shortness of breath, but notes that her breathing got worse over approx 1 week. The patient has had shortness of breath, she has cough with yellow phlem, weakness and malaise. She was seen by her PCP and was diagnosed with PNA and was started on levofloxacin. She has some improvement in her symptoms, but this AM noted that her condition worsened, she was more short of breath and has significant weakness and therefore came to the ER for further evaluation. She denied any chest pain or chest tightness, no nausea or vomiting, no constipation of diarrhea. In the ER patients labs showed elevated bnp, mildly elevated trop at 0.04, she had wheezing on exam, cxr suggestive of pna, worsening renal function. Patient given he weakness and pna, / patricia wheezing was admitted to the hospital for further management. she has h/o CAD, CHF, s/p CABG, s/p Cardiac stents as well as two valve replacements as per the patient. She follows with Dr Gonzalez and Dr Muñoz. As per the ER physician the patient and [facility] reasons and was therefore admitted her for further management. March 07: Pt seen examined, patient tolerating po well, she had a rought night, with relationship to shortness and coughing. The patients sy mptoms improved with use of duonebs. This am she feels weak and short of breath. She still has urinary retention for which she requires catheterization. UA is negative. Patient will have sims placed. She remains of diuretic for CHF. Exam today did show wheezing and bethenacol which was start ed for urinary retention is stopped (can worsen copd) March 08: Patient seen examined, no acute overnight events, her shortness of breath is better this AM, she is still feeling tired but her breathing and cough is improved since yesterday. She denies any acute complaints and slept well last night. her CXR today shows moderate chf and right basilar pna. The patient is on diuretic and abx (levofloxacin). The patient otherwise is afebrile. wbc normal but did increase since yesterday. March 09, 2017: Hospital course: this patient was admitted on March 06, with shortness of breath. She was already on outpatient treatment with oral Levaquin for community-acquired pneumonia. he was admitted here and treated for both CHF exacerbation and pneumonia, with IV Lasix and IV Levaquin. She has steadily improved since then. She is felt stable for discharge today, with continued treatment. She has been treated with IV steroids, which will be changed to oral. She has continued wheezing, which she reports she thinks she's had since a possible viral pneumonia in November. She will continue with dual nebs 3 times a day plus when necessary albuterol -she also was found to have urinary retention, and after several straight catheters, Sims catheter was placed. Her daughter has requested thatshe be transferred with the Sims catheter in place. -Her daughter has also requested that her diabetes from low sodium to a regular diet. -Speech therapy met with her, and the patient notes she has a long-standing history of trouble with bread and meat occasionally getting stuck in her esophagus. Speech therapy suggested an esophagram at some point, although the patient notes that she has had this problem for many years, and also her daughter and granddaughter have it. -he patient has diuresed approximately 745 mL. her creatinine has been stable at 1.5, and this appears fairly close to her baseline. -LFTs were initially somewhat elevated, and those are returning to normal. exam: The patient is sitting up in her chair, and is alert and oriented, calm and cooperative. neck shows no obvious JVD. Cardiac exam shows regular rate and rhythm. Lungs: Show diffuse expiratory wheezes throughout all lung martin, without any accessory muscle use. breathing is unlabored. Abdomen: Is soft and nontender. Extremities: Show no edema. Neurologic: Is grossly nonfocal. assessment and plan: #1. pulmonary. Infectious disease. Right basilar pneumonia. clinically the patient is improving. -Switch back to oral Levaquin, this can be discontinued after 3 more days. -patient continues with significant wheezing, but denies history of COPD. switch to oral prednisone, and taper this by 10 mg every day, while monitoring. Continue duo nebs 3 times a day plus albuterol when necessary. She is not requiring oxygen at this time. #2. Cardiac. -cHF exacerbation. Change to oral Lasix, 40 mg by mouth twice a day. Potassium and magnesium will need to be monitored. monitor daily weights, intake and output. -family requests discontinuing a cardiac diet, and switching over to a regular diet. -troponin was minimally elevated and family elected conservative management. #3. gI. -LFTs were elevated, possibly due to passive liver congestion. These are improving. -patient reports some dysphagia to solids, which is long-standing. Speech therapy recommended an esophagram, if this is never been done before. 34. Acute on chronic kidney failure. Creatinine is near baseline at 1.5. Continue to monitor. #5. DVT prophylaxis: Subcutaneous heparin. #6. CODE STATUS: DNR. 37. . patient has urinary retention. Continue Sims catheter for now. Verified with daughter if she would like an outpatient urology follow-up to look into this further. Discharge diagnosis: right basilar pneumonia. CHF exacerbation. - Time Spent with Patient Total time spent providing and/or coordinating discharge services: Greater than 30 minutes Medical - DS: Exam - Constitutional Vitals: Vital Signs Temp Pulse Pulse Resp BP BP Pulse Ox 03/09/17 07:12 96 03/09/17 07:10 88 10 L 03/09/17 04:00 97.1 F 101 H 18 93/55 91 03/09/17 02:35 92 H 16 03/09/17 00:00 97.5 F 110 H 18 93/56 92 03/08/17 23:04 100 H 22 03/08/17 20:00 101 H 18 102/63 92 03/08/17 19:26 94 H 22 03/08/17 19:23 93 03/08/17 16:00 97.5 F 22 121/72 93 03/08/17 15:10 100 H 18 03/08/17 11:42 100 H 18 03/08/17 11:22 97.6 F 22 94 Intake and Output 03/08/17 03/09/17 03/09/17 21:59 05:59 13:59 Intake Total 240 / 240 Output Total 900 / 900 Balance 240 / 240 -900 / -900 Intake: Oral 240 / 240 Output: Urine Catheter Amount 900 / 900 Other: Weight 148 lb 8 oz Medical - DS: Data Labs on day of discharge: Labs from last 24 hours 03/09/17 03/09/17 03:50 03:50 WBC 8.0 RBC 3.05 L Hgb 10.0 L Hct 29.4 L MCV 96.6 MCH 32.7 MCHC 33.8 RDW 16.2 H Plt Count 168 MPV 8.9 Gran % 88.1 H Lymph % (Auto) 9.1 L Kerr % (Auto) 2.3 Eos % (Auto) 0.5 Baso % (Auto) 0 Gran # 7.0 Lymph # 0.7 L Kerr # 0.2 Eos # 0 Baso # 0 Sodium 135 Potassium 3.4 Chloride 97 Carbon Dioxide 23 Anion Gap 15.0 BUN 64 H Creatinine 1.5 H GFR Calculation 31 Glucose 150 H Uric Acid 14.7 H Calcium 9.4 Phosphorus 3.2 Magnesium 2.4 Total Bilirubin 0.6 Direct Bilirubin < 0.2 GGT 44 H AST 19 ALT 43 H Alkaline Phosphatase 104 Lactate Dehydrogenase 171 Total Protein 6.1 Albumin 3.3 Globulin 2.8 Albumin/Globulin Ratio 1.2 Triglycerides 144 chemistry panel from March 08; Showed the line of 60, creatinine 1.5. bUN/creatinine from March 07 were 53, and 1.5. troponin on March 06: 0.04 urinalysis was normal. sputum Gram stain and blood cultures are negative so far. chest x-ray from March 08, 2017: Cardiomegaly has increased. Pacemaker leads are noted. Mild CHF is still seen, as well as small right base infiltrate. eKG:Shows sinus, probably paced, rhythm at 89. echocardiogram: Shows moderate LVH, septal dyssynergywith artificial RV pacing overall normal LV systolic performance. EF 65%. eavy mitral and aortic valve calcification, with both mitral stenosis and mitral regurgitation, moderate to severe, as well as moderate left atrial enlargement. Moderate pulmonary hypertension. Medical - DS: A/P - Patient/Caregiver Discharge Instructions Activity: as per physical therapy Diet: Regular Diet Additional Instructions: Please call to reschedule appt. with Dr. Etienne, Pulmonology. Prescriptions: Albuterol Sulfate 2.5 mg IH Q4HP PRN #1 ml PRN Reason: Shortness Of Breath Or Wheezing HYDROcodone/APAP 5/325MG [[place] 5/325Mg] 1 tab PO Q4HP PRN #20 tablet PRN Reason: Pain Ipratropium/Albuterol [Duoneb] 3 ml INHALATION TID #1 ml Lactulose 10 g PO QDAY PRN #1 ml PRN Reason: Constipation Omeprazole [Prilosec] 40 mg PO BIDAC #1 capsule predniSONE [Prednisone] 40 mg PO BID #1 tablet - Follow up Plan Follow up with: Dennis Woody DO [Primary Care Provider] - Donald Etienne MD [Physician] - Disposition: [facility] Prognosis: Fair Rehab Potential: Good Overall status at discharge: patient is progressing back to baseline Medical - DS: Qual - VTE Deep Vein Thrombosis/Pulmonary Embolism Present on Admission: No
== END 2017-03-09 11:00 | DRG 194 ==
LOC: ED 21:17 → ICU 03-06 01:30 → INTOOBSV 03-06 01:30 → SUATTDRO 03-06 10:28
PROVIDERS: ADMIT Internal Medicine; ATTEND Internal Medicine